=== PATIENT | female | born 1940 | race Caucasian/White ===

== ENCOUNTER → 2017-07-24 | Day surgery (SDC) | payer OTHER, MEDICARE ==
[~2017-07-24] VITALS: Ht 162.6 cm; Wt 63.5 kg
--- NOTE | 2017-07-24 12:11 | MAMMOGRAPHY REPORT ---
EXAMINATION: MM GUIDED NEEDLE LOCALIZATION BREAST, LEFT CLINICAL INFORMATION: Needle localization of left breast invasive ductal carcinoma. COMPARISON: Ultrasound-guided biopsy and mammogram dated 06/22/2017 and 06/15/2017. TECHNIQUE NEEDLE LOC: Proper informed consent is obtained from the patient after discussion of the procedure, potential risks and complications, and alternatives including declining the procedure today. Patient was given an opportunity for questions. The patient appeared to understand. The patient consented to the procedure and signed the consent form. GUIDANCE: Digital mammography. APPROACH: Superior TARGET: Biopsy clip in the periareolar 1 o'clock position. ANESTHESIA: 10 mL Xylocaine 2%. LOCALIZATION MARKER: Aquaporinpans 7 cm needle The skin was prepped and local anesthesia administered. The needle was positioned and position assessed with mammography. The wire was hooked into position. The patient tolerated the procedure well and had no immediate complication. Diagram was marked for the surgeon. The target is a ribbon-shaped clip in the upper outer quadrant of the left breast, 6 cm deep to the skin with 14 cm of the wire remaining external to the skin. IMPRESSION: Status post left breast needle localization with wire hooked into position. The target is a ribbon-shaped clip in the upper outer quadrant of the left breast, 6 cm deep to the skin with 14 cm of the wire remaining external to the skin.
--- NOTE | 2017-07-24 14:17 | NUCLEAR MEDICINE REPORT ---
EXAMINATION: RADIONUCLIDE BREAST LYMPHOSCINTIGRAPHY, LEFT CLINICAL INDICATION: 76-year-old female recently diagnosed with invasive ductal left breast carcinoma at 12:30 o'clock, 4-5 cm from the nipple, initially suspected on screening mammogram done on 03/13/2017 and subsequently confirmed with diagnostic left breast mammogram and left breast ultrasound done on 06/15/2017 and finally with ultrasound-guided biopsy done on 06/22/2017. COMPARISON: 06/22/2017, 06/15/2017, and 03/13/2017. TECHNIQUE: Following the periareolar subdermal injection of 1.13 millicuries technetium 99m Lymphoseek by NAVARRO Bertrand, at 3 sites within the left breast, images of the left breast and axilla were obtained using a gamma camera fitted with a high-resolution parallel hole collimator. FINDINGS: There is visualization of a lymphatic channel and 2 discrete foci of activity in the left axilla. Second echelon nodes are not noted. IMPRESSION: Two discrete sentinel nodes in the left axilla are visualized.
--- NOTE | 2017-07-24 17:05 | Operative Report ---
Operative/Inv Procedure Report Surgery Date: 07/24/17 Name of Procedure: Left partial mastectomy with wire localization and sentinel lymph node biopsy Pre-Operative Diagnosis: Left breast cancer Post-Operative Diagnosis: Same Estimated Blood Loss: less than 50ml Surgeon/Psychiatry Teacher: Madyson Roman MD Anesthesia: laryngeal mask airway Specimens: Left lumpectomy, cranial margin, caudal margin, medial margin, lateral margin, deep margin, sentinel lymph node 2 Operative/Procedure Note Note: Patient is status post a needle biopsy showed invasive carcinoma. She is brought to the operating room for partial mastectomy with sentinel lymph node biopsy. Preoperative wire localization and nipple scintigraphy were performed and those films were reviewed. Anesthesia was induced her in the left breast was prepped and draped in a sterile fashion using ChloraPrep. 3 mL of methylene blue diluted with 2 mL of saline was injected in the retroareolar fashion. Local anesthesia of 1% lidocaine mixed half percent Marcaine was given and a transverse incision was made in the upper aspect of the breast. The wire was brought into the incision and the area of concern was grasped using an Allis clamp. A generous lumpectomy was performed and the specimen was marked for orientation using margin map. Intraoperative x-ray confirmed the presence of the clip in the specimen. Additional margins were taken in the cranial, caudal, medial, lateral, and deep positions.. A 2 x 2 profile BioSorb Marker was and placed in lumpectomy cavity and facets adjacent tissue. Rest tissue was closed over the Marker using 2-0 Vicryl sutures. Skin was closed using running Monocryl subcuticular stitch. The axilla was then approached. After measuring local anesthesia a transverse incision was made in the lower axilla. The axilla was explored and there was a hot lymph node that was identified with counts to 1200. One other lymph node was identified with counts to approximately 200. There were no other hot, blue, or palpable lymph nodes in the axilla. Hemostasis was achieved using electrocautery and clips. Deep tissue was proximal made using interrupted Vicryl sutures and the skin was closed using a running Biosyn subcuticular stitch. Sterile strips and sterile dressings were applied the patient was transferred to the recovery room in satisfactory condition having tolerated the procedure well.
--- NOTE | 2017-07-24 17:11 | MAMMOGRAPHY REPORT ---
EXAMINATION: MM NEEDLE LOCALIZATION SPECIMEN FROM THE BREAST, LEFT CLINICAL INDICATION: Excision of left breast cancer. Specimen radiograph. COMPARISON: Needle localization films from earlier today. TECHNIQUE: Single specimen radiograph was obtained. FINDINGS: The radiograph of the excised surgical specimen shows that the hookwire is delivered intact and the marker clip is identified in the specimen. IMPRESSION: Satisfactory excision of the targeted lesion. These findings were communicated to the surgeon in the OR at the time of specimen radiography.
== END ==
LOC: STS 01:00 → EDSTATUS 07:00 → STS 07:00 → IIU 09:00 → CBW.IIU 09:00 → STS 09:00 → CBW.MAMMO 09:30 → XRY 10:30
DX: C50.412 Malignant neoplasm of upper-outer quadrant of left female breast (principal); Z17.0 Estrogen receptor positive status [ER+]; E03.9 Hypothyroidism, unspecified; Z80.3 Family history of malignant neoplasm of breast; I10 Essential (primary) hypertension; I49.9 Cardiac arrhythmia, unspecified; K21.9 Gastro-esophageal reflux disease without esophagitis
CPT/HCPCS: A9520; C9728; J0131; J0690; J2001; J2250; J3490; Q9968